=== PATIENT | male | born 1970 | race Caucasian/White ===

== ENCOUNTER 2021-05-31 13:03 | Inpatient (IN) | payer BC ==
[2021-05-31 14:01] LABS: CORONAVIRUS COVID-19 NAA NEGATIVE (NEGATIVE); RESPIRATORY SYNCYTIAL VIR NAA NEGATIVE (NEGATIVE)
[2021-05-31] MEDS ORDERED: Sodium Chloride 0.9% 1,000 ML IV ONE (14:14)
[2021-05-31] MEDS ORDERED: Ondansetron 4 MG/2 ML SDV IV ONE (14:14)
[2021-05-31] MEDS ORDERED: Sodium Chloride 0.9% 10 ML Syringe FLUSH PRN (14:14)
[2021-05-31 14:38] LABS: PTT,PARTIAL THROMBOPLSTIN TIME 25.9 SEC (22.0-34.0)
[2021-05-31 14:40] LABS: ANION GAP 14.6 mEq/L (7-13)
[2021-05-31] MEDS ORDERED: Aspirin 81 MG Tab.Chew PO ONE (15:06)
[2021-05-31] MEDS ORDERED: Heparin Sodium 5,000 Units/ML Vial IVPUSH ONE (15:06)
[2021-05-31] MEDS ORDERED: VANCOmycin 1.75 GM/350 ML 1.75 GM in Premix Bag 1 BAG IV ONE (15:15)
[2021-05-31] MEDS: Heparin Sodium/0.45% NaCl 25,000 UNITS/500 ML BAG IV SCH (15:17)
[2021-05-31] MEDS ORDERED: Ondansetron 4 MG/2 ML SDV IVPUSH PRN (19:02)
[2021-05-31] MEDS ORDERED: oxyCODONE 5 MG Tab PO PRN (19:02)
[2021-05-31] MEDS ORDERED: Docusate Sodium 100 MG Cap PO PRN (19:02)
[2021-05-31] MEDS ORDERED: Clopidogrel 75 MG Tab PO STA (19:09)
[2021-05-31] MEDS ORDERED: atorvaSTATin 20 MG Tab PO STA (19:15)
[2021-05-31] MEDS ORDERED: Furosemide 20 MG/2 ML VIAL IVPUSH ONE (19:53)
[2021-05-31] MEDS ORDERED: Morphine 2 MG/ML SYRINGE ONE (20:40)
[2021-05-31] MEDS: Morphine 2 MG/ML SYRINGE IVPUSH PRN (20:41)
[2021-05-31] MEDS ORDERED: Nitroglycerin 0.4 MG Tab.SL SL PRN (20:54)
[2021-05-31] MEDS ORDERED: Nitroglycerin 0.4 MG Tab.SL ONE (20:57)
[2021-05-31] MEDS ORDERED: Pantoprazole 40 MG Tab.CR PO SCH (21:00)
[2021-05-31] MEDS ORDERED: Morphine 2 MG/ML SYRINGE IVPUSH ONE (21:00)
[2021-05-31] MEDS ORDERED: Nitroglycerin 2% Oint 1 GM UD Packet ONE (21:13)
[2021-05-31] MEDS ORDERED: Nitroglycerin 2% Oint 1 GM UD Packet TOP ONE (21:19)
[2021-05-31] MEDS ORDERED: HYDROmorphone 1 MG/ML Syringe ONE (21:33)
[2021-05-31] MEDS ORDERED: HYDROmorphone 1 MG/ML Syringe IVPUSH ONE (21:33)
[2021-06-01] MEDS: Acetaminophen 325 MG Tab PO PRN ×2 (01:36→09:44)
[2021-06-01] MEDS ORDERED: Heparin Sodium 5,000 Units/ML Vial ONE (02:05)
[2021-06-01] MEDS ORDERED: Heparin Sodium 5,000 Units/ML Vial IVPUSH ONE (02:10)
[2021-06-01] MEDS: Morphine 2 MG/ML SYRINGE IVPUSH PRN ×3 (02:21→10:14)
[2021-06-01] MEDS ORDERED: Piperacillin/Tazobactam 2.25 GM in Sodium Chloride 0.9% 50 ML IV SCH (07:14)
[2021-06-01] MEDS ORDERED: Carvedilol 3.125 MG Tab PO SCH (08:00)
[2021-06-01] MEDS ORDERED: Aspirin 325 MG Tab PO SCH (08:00)
[2021-06-01] MEDS ORDERED: atorvaSTATin 20 MG Tab PO ONE (09:00)
[2021-06-01] MEDS ORDERED: Clopidogrel 75 MG Tab PO SCH (09:00)
[2021-06-01] MEDS ORDERED: 50% Dextrose in Water 50 ML Syringe IVPUSH PRN (09:04)
[2021-06-01] MEDS ORDERED: Glucagon,Human Recombinant 1 MG Vial IM PRN (09:04)
[2021-06-01 09:06] LABS: HEMOGLOBIN A1C 13.2 % (<5.7)
[2021-06-01 09:23] LABS: ANION GAP 12.8 mEq/L (7-13)
[2021-06-01] MEDS ORDERED: Insulin Lispro 100 Units/ML 3 ML Vial SUBCUT SCH (09:45)
[2021-06-01] MEDS ORDERED: Furosemide 40 MG/4 ML VIAL IVPUSH ONE (10:11)
[2021-06-01] MEDS: Heparin Sodium/0.45% NaCl 25,000 UNITS/500 ML BAG IV SCH (10:34)
== END 2021-06-01 11:15 | DRG 190 ==
LOC: DL.ED 13:03 → DL.MS 17:52
PROVIDERS: ADMIT Internal Medicine; ATTEND Internal Medicine
DX: I21.4 Non-ST elevation (NSTEMI) myocardial infarction (principal); N17.9 Acute kidney failure, unspecified; N18.9 Chronic kidney disease, unspecified; E66.9 Obesity, unspecified; E61.1 Iron deficiency; E11.22 Type 2 diabetes mellitus with diabetic chronic kidney disease; D63.1 Anemia in chronic kidney disease; M25.512 Pain in left shoulder; Z68.44 Body mass index [BMI] 60.0-69.9, adult
CPT/HCPCS: 0241U; 36415; 71045; 80048; 80053; 82150; 82272; 82947; 83036; 83540; 83550; 83605; 83735; 83880; 84484; 85025; 85027; 85379; 85610; 85730; 86140; 86850; 86900; 86901; 86920; 86922; 87040; 87081; 87430; 93005; 93010; 93971; 96365; 96366; 96368; 96375; 99285; 99285-25; A9270-GY; J1170; J1644; J1815-GY; J1940; J2270; J2405; J2543; J3370; J7030

== ENCOUNTER 2021-06-01 23:23 | Inpatient (IN) | payer BC ==
[2021-06-01] MEDS ORDERED: Sodium Chloride 0.9% 10 ML Syringe FLUSH PRN (23:45)
[2021-06-01] MEDS ORDERED: Acetaminophen 325 MG Tab PO PRN (23:45)
[2021-06-01] MEDS ORDERED: 50% Dextrose in Water 50 ML Syringe IVPUSH PRN (23:57)
[2021-06-02] MEDS ORDERED: 50% Dextrose in Water 50 ML Syringe IVPUSH PRN (00:06)
[2021-06-02] MEDS ORDERED: Glucagon,Human Recombinant 1 MG Vial IM PRN (00:06)
[2021-06-02] MEDS: oxyCODONE 5 MG Tab PO PRN ×4 (00:35→19:35)
[2021-06-02 01:16] LABS: ANION GAP 14.7 mEq/L (7-13)
[2021-06-02] MEDS: Heparin Sodium 5,000 Units/ML Vial SUBCUT SCH ×3 (05:53→21:56)
[2021-06-02] MEDS: Pantoprazole 40 MG Tab.CR PO SCH ×2 (05:53→15:59)
[2021-06-02] MEDS: Docusate Sodium 100 MG Cap PO PRN ×2 (05:53→19:35)
[2021-06-02] MEDS ORDERED: Pantoprazole 40 MG Tab.CR PO SCH (06:00)
[2021-06-02] MEDS ORDERED: Furosemide 40 MG/4 ML VIAL IVPUSH SCH (08:00)
[2021-06-02] MEDS: Sodium Chloride 0.9% 10 ML Syringe FLUSH SCH ×2 (09:54→22:14)
[2021-06-02] MEDS: Insulin Lispro 100 Units/ML 3 ML Vial SUBCUT SCH ×4 (09:54→22:14)
[2021-06-02] MEDS: Insulin Glarg,Human.Rec.Analog 100 Unit/ML SUBCUT SCH (09:57)
[2021-06-02] MEDS: Ondansetron 4 MG/2 ML SDV IVPUSH PRN ×2 (10:12→19:34)
[2021-06-02] MEDS: Metoprolol Tartrate 25 MG Tab PO SCH ×2 (10:47→21:57)
[2021-06-02] MEDS: Iron Polysaccharides Complex 150 MG Cap PO SCH (10:48)
[2021-06-02] MEDS: Clopidogrel 75 MG Tab PO SCH (10:48)
[2021-06-02] MEDS: Aspirin 81 MG Tab.EC PO SCH (10:48)
[2021-06-02 10:52] LABS: ANION GAP 14.7 mEq/L (7-13)
[2021-06-02] MEDS: Sodium Chloride 0.9% 1,000 ML IV SCH (15:59)
[2021-06-02] MEDS: atorvaSTATin 20 MG Tab PO SCH (21:56)
[2021-06-03] MEDS: Sodium Chloride 0.9% 1,000 ML IV SCH ×2 (01:50→14:25)
[2021-06-03 05:51] LABS: ANION GAP 14.4 mEq/L (7-13)
[2021-06-03] MEDS: Heparin Sodium 5,000 Units/ML Vial SUBCUT SCH ×3 (05:57→21:34)
[2021-06-03] MEDS: Pantoprazole 40 MG Tab.CR PO SCH ×2 (05:57→16:56)
[2021-06-03] MEDS: Metoprolol Tartrate 25 MG Tab PO SCH ×2 (08:07→21:33)
[2021-06-03] MEDS: Aspirin 81 MG Tab.EC PO SCH (08:08)
[2021-06-03] MEDS: Clopidogrel 75 MG Tab PO SCH (08:08)
[2021-06-03] MEDS: Iron Polysaccharides Complex 150 MG Cap PO SCH (08:08)
[2021-06-03] MEDS: Insulin Lispro 100 Units/ML 3 ML Vial SUBCUT SCH ×4 (08:09→21:34)
[2021-06-03] MEDS: Insulin Glarg,Human.Rec.Analog 100 Unit/ML SUBCUT SCH (08:15)
[2021-06-03] MEDS: Sodium Chloride 0.9% 10 ML Syringe FLUSH SCH ×2 (08:19→21:36)
[2021-06-03] MEDS ORDERED: Furosemide 40 MG/4 ML VIAL IVPUSH ONE (10:15)
[2021-06-03] MEDS: amLODIPine 5 MG Tab PO SCH (11:42)
[2021-06-03] MEDS: Multivitamin Tab PO SCH (11:42)
[2021-06-03] MEDS: cefTRIAXone 1 GM in Sodium Chloride 0.9% 50 ML IV SCH (11:44)
[2021-06-03] MEDS ORDERED: Zolpidem 5 MG Tab PO PRN (21:00)
[2021-06-03] MEDS: atorvaSTATin 20 MG Tab PO SCH (21:33)
[2021-06-04] MEDS: Sodium Chloride 0.9% 1,000 ML IV SCH ×3 (00:56→22:58)
[2021-06-04] MEDS: Pantoprazole 40 MG Tab.CR PO SCH ×2 (05:39→17:12)
[2021-06-04] MEDS: Heparin Sodium 5,000 Units/ML Vial SUBCUT SCH ×3 (05:39→21:49)
[2021-06-04 06:51] LABS: ANION GAP 14.8 mEq/L (7-13)
[2021-06-04] MEDS: oxyCODONE 5 MG Tab PO PRN (08:53)
[2021-06-04] MEDS: Docusate Sodium 100 MG Cap PO PRN (08:56)
[2021-06-04] MEDS: Multivitamin Tab PO SCH (08:57)
[2021-06-04] MEDS: Iron Polysaccharides Complex 150 MG Cap PO SCH (08:57)
[2021-06-04] MEDS: amLODIPine 5 MG Tab PO SCH (08:58)
[2021-06-04] MEDS: Clopidogrel 75 MG Tab PO SCH (08:58)
[2021-06-04] MEDS: Metoprolol Tartrate 25 MG Tab PO SCH ×2 (08:59→21:43)
[2021-06-04] MEDS: Aspirin 81 MG Tab.EC PO SCH (09:00)
[2021-06-04] MEDS: Insulin Lispro 100 Units/ML 3 ML Vial SUBCUT SCH ×4 (09:01→21:44)
[2021-06-04] MEDS: Insulin Glarg,Human.Rec.Analog 100 Unit/ML SUBCUT SCH (09:02)
[2021-06-04] MEDS: Sodium Chloride 0.9% 10 ML Syringe FLUSH SCH ×2 (09:04→21:45)
[2021-06-04] MEDS: Furosemide 40 MG/4 ML VIAL IVPUSH SCH ×2 (11:16→14:10)
[2021-06-04] MEDS: Lactulose Soln 10 GM/15 ML 30 ML UD Cup PO SCH ×2 (11:20→17:13)
[2021-06-04] MEDS: cefTRIAXone 1 GM in Sodium Chloride 0.9% 50 ML IV SCH (11:44)
[2021-06-04] MEDS: atorvaSTATin 20 MG Tab PO SCH (21:42)
[2021-06-05] MEDS ORDERED: Furosemide 40 MG/4 ML VIAL IVPUSH ONE (00:14)
[2021-06-05] MEDS ORDERED: LORazepam 0.5 MG Tab PO PRN (00:15)
[2021-06-05] MEDS ORDERED: Nitroglycerin 0.4 MG Tab.SL SL ONE (00:15)
[2021-06-05] MEDS: Heparin Sodium 5,000 Units/ML Vial SUBCUT SCH (06:02)
[2021-06-05] MEDS: Pantoprazole 40 MG Tab.CR PO SCH (06:02)
[2021-06-05 07:05] LABS: ANION GAP 16.2 mEq/L (7-13)
[2021-06-05] MEDS: Furosemide 40 MG/4 ML VIAL IVPUSH SCH (08:48)
[2021-06-05] MEDS: Sodium Chloride 0.9% 10 ML Syringe FLUSH SCH (09:15)
[2021-06-05] MEDS: Insulin Lispro 100 Units/ML 3 ML Vial SUBCUT SCH ×2 (09:52→13:54)
[2021-06-05] MEDS: Insulin Glarg,Human.Rec.Analog 100 Unit/ML SUBCUT SCH (09:55)
[2021-06-05] MEDS: amLODIPine 5 MG Tab PO SCH (09:59)
[2021-06-05] MEDS: Clopidogrel 75 MG Tab PO SCH (10:00)
[2021-06-05] MEDS: Iron Polysaccharides Complex 150 MG Cap PO SCH (10:01)
[2021-06-05] MEDS: Metoprolol Tartrate 25 MG Tab PO SCH (10:01)
[2021-06-05] MEDS: Aspirin 81 MG Tab.EC PO SCH (10:02)
[2021-06-05] MEDS: Multivitamin Tab PO SCH (10:02)
[2021-06-05] MEDS: cefTRIAXone 1 GM in Sodium Chloride 0.9% 50 ML IV SCH (13:54)
== END 2021-06-05 11:50 | DRG 469 ==
LOC: DL.MS 23:45
PROVIDERS: ADMIT Internal Medicine; ATTEND Internal Medicine
PROC: 30233N1 Transfusion of Nonautologous Red Blood Cells into Peripheral Vein, Percutaneous Approach (ICD-10-PCS; principal; 2021-06-01)
DX: N17.9 Acute kidney failure, unspecified (principal); I21.4 Non-ST elevation (NSTEMI) myocardial infarction; I25.10 Atherosclerotic heart disease of native coronary artery without angina pectoris; I50.9 Heart failure, unspecified; N18.30 Chronic kidney disease, stage 3 unspecified; E87.5 Hyperkalemia; E11.22 Type 2 diabetes mellitus with diabetic chronic kidney disease; D50.9 Iron deficiency anemia, unspecified; F41.9 Anxiety disorder, unspecified; E87.1 Hypo-osmolality and hyponatremia; E11.65 Type 2 diabetes mellitus with hyperglycemia; E66.01 Morbid (severe) obesity due to excess calories; Z79.82 Long term (current) use of aspirin; Z79.4 Long term (current) use of insulin; Z79.899 Other long term (current) drug therapy; Z79.02 Long term (current) use of antithrombotics/antiplatelets; Z95.5 Presence of coronary angioplasty implant and graft; Z68.43 Body mass index [BMI] 50.0-59.9, adult
CPT/HCPCS: 36415; 36430; 74176; 80048; 81001; 82947; 83880; 84100; 85025; 86850; 86900; 86901; 86920; 86922; 94060; 97140-GO; 97165-GO; A9270-GY; J0696; J1644; J1815-GY; J1940; J2405; J7030; P9016

== ENCOUNTER 2021-07-28 17:28 | Inpatient (IN) | payer BC ==
[2021-07-28] MEDS: Sodium Chloride 0.9% 10 ML Syringe FLUSH PRN ×2 (18:19→23:16)
[2021-07-28] MEDS ORDERED: Sodium Chloride 0.9% 1,000 ML IV ONE (18:40)
[2021-07-28] MEDS ORDERED: cefTRIAXone 1 GM in Sodium Chloride 0.9% 50 ML IV ONE (18:40)
[2021-07-28] MEDS ORDERED: Bumetanide 1 MG/4 ML MDV IVPUSH ONE (19:31)
[2021-07-28 19:43] LABS: CORONAVIRUS COVID-19 NAA NEGATIVE (NEGATIVE); RESPIRATORY SYNCYTIAL VIR NAA NEGATIVE (NEGATIVE)
[2021-07-28] MEDS ORDERED: Magnesium Sulfate/Water 2 GM in Premix Bag 1 BAG IV ONE (19:50)
[2021-07-28] MEDS ORDERED: Glucagon,Human Recombinant 1 MG Vial IM PRN ×2 (21:54→22:16)
[2021-07-28] MEDS ORDERED: 50% Dextrose in Water 50 ML Syringe IVPUSH PRN ×2 (21:54→22:16)
[2021-07-28] MEDS: Piperacillin/Tazobactam 2.25 GM in Sodium Chloride 0.9% 50 ML IV SCH (23:16)
[2021-07-29] MEDS: Piperacillin/Tazobactam 2.25 GM in Sodium Chloride 0.9% 50 ML IV SCH ×4 (05:41→21:30)
[2021-07-29] MEDS: Glimepiride 2 MG Tab PO SCH (08:01)
[2021-07-29] MEDS: Insulin Lispro 100 Units/ML 3 ML Vial SUBCUT SCH ×4 (08:01→23:09)
[2021-07-29] MEDS: Multivitamin Tab PO SCH (08:02)
[2021-07-29] MEDS: Bumetanide 1 MG Tab PO SCH (08:02)
[2021-07-29] MEDS: Labetalol 100 MG Tab PO SCH (08:03)
[2021-07-29] MEDS: Clopidogrel 75 MG Tab PO SCH (08:03)
[2021-07-29] MEDS: hydrALAZINE 25 MG Tab PO SCH ×2 (08:05→14:59)
[2021-07-29 08:06] LABS: ANION GAP 19.3 mEq/L (7-13)
[2021-07-29] MEDS: Aspirin 81 MG Tab.EC PO SCH (08:08)
[2021-07-29] MEDS ORDERED: Insulin Glarg,Human.Rec.Analog 100 Unit/ML SUBCUT SCH (09:00)
[2021-07-29] MEDS ORDERED: Ondansetron 4 MG Tab.DIS PO PRN (10:41)
[2021-07-29] MEDS ORDERED: VANCOmycin 1.5 GM/300 ML 1.5 GM in Premix Bag 1 BAG IV SCH (14:00)
[2021-07-29] MEDS: Heparin Sodium 5,000 Units/ML Vial SUBCUT SCH ×2 (14:59→21:23)
[2021-07-29] MEDS: Pantoprazole 40 MG Tab.CR PO SCH (21:21)
[2021-07-29] MEDS: Sodium Chloride 0.9% 10 ML Syringe FLUSH PRN (21:30)
[2021-07-29] MEDS: Acetaminophen 325 MG Tab PO PRN (21:36)
[2021-07-29] MEDS: Calcium Carbonate 500 MG Tab.Chew PO SCH (21:38)
[2021-07-29] MEDS: Insulin Glarg,Human.Rec.Analog 100 Unit/ML SUBCUT SCH (22:14)
[2021-07-29] MEDS: atorvaSTATin 20 MG Tab PO SCH (23:07)
[2021-07-30] MEDS: Labetalol 100 MG Tab PO SCH ×3 (00:33→21:33)
[2021-07-30] MEDS: hydrALAZINE 25 MG Tab PO SCH ×4 (00:33→21:33)
[2021-07-30] MEDS: Sodium Chloride 0.9% 10 ML Syringe FLUSH PRN (04:29)
[2021-07-30] MEDS: Piperacillin/Tazobactam 2.25 GM in Sodium Chloride 0.9% 50 ML IV SCH ×4 (04:29→21:47)
[2021-07-30] MEDS: Heparin Sodium 5,000 Units/ML Vial SUBCUT SCH ×3 (06:36→21:32)
[2021-07-30 06:43] LABS: ANION GAP 21.4 mEq/L (7-13)
[2021-07-30] MEDS: Insulin Lispro 100 Units/ML 3 ML Vial SUBCUT SCH ×4 (08:55→21:32)
[2021-07-30] MEDS: Acetaminophen 325 MG Tab PO PRN (10:03)
[2021-07-30] MEDS: Multivitamin Tab PO SCH (12:06)
[2021-07-30] MEDS: Clopidogrel 75 MG Tab PO SCH (12:06)
[2021-07-30] MEDS: Bumetanide 1 MG Tab PO SCH (12:06)
[2021-07-30] MEDS: Glimepiride 2 MG Tab PO SCH (12:07)
[2021-07-30] MEDS: Aspirin 81 MG Tab.EC PO SCH (12:07)
[2021-07-30] MEDS: Calcium Carbonate 500 MG Tab.Chew PO SCH (21:32)
[2021-07-30] MEDS: atorvaSTATin 20 MG Tab PO SCH (21:33)
[2021-07-30] MEDS: Pantoprazole 40 MG Tab.CR PO SCH (21:33)
[2021-07-30] MEDS: Insulin Glarg,Human.Rec.Analog 100 Unit/ML SUBCUT SCH (21:36)
[2021-07-31] MEDS: Acetaminophen/HYDROcodone 325-5 MG Tab PO PRN ×2 (02:14→11:18)
[2021-07-31] MEDS: Heparin Sodium 5,000 Units/ML Vial SUBCUT SCH (05:42)
[2021-07-31] MEDS: Piperacillin/Tazobactam 2.25 GM in Sodium Chloride 0.9% 50 ML IV SCH ×2 (05:42→10:25)
[2021-07-31 07:13] LABS: ANION GAP 20.5 mEq/L (7-13)
[2021-07-31] MEDS: Insulin Lispro 100 Units/ML 3 ML Vial SUBCUT SCH ×2 (08:13→11:26)
[2021-07-31] MEDS: Multivitamin Tab PO SCH (08:31)
[2021-07-31] MEDS: Clopidogrel 75 MG Tab PO SCH (08:31)
[2021-07-31] MEDS: Aspirin 81 MG Tab.EC PO SCH (08:31)
[2021-07-31] MEDS: Glimepiride 2 MG Tab PO SCH (08:31)
[2021-07-31] MEDS: Bumetanide 1 MG Tab PO SCH (08:32)
[2021-07-31] MEDS: hydrALAZINE 25 MG Tab PO SCH (08:34)
[2021-07-31] MEDS: Labetalol 100 MG Tab PO SCH (08:35)
[2021-07-31] MEDS: Sodium Chloride 0.9% 10 ML Syringe FLUSH PRN (11:05)
== END 2021-07-31 12:20 | DRG 720 ==
LOC: DL.ED 17:28 → UNDOADMOB 20:38 → DL.MS 20:38 → INTOOBSV 20:38 → OBSVTOIN 20:38 → UNDODISIN 07-31 12:20
PROVIDERS: ADMIT Internal Medicine; ATTEND Internal Medicine
DX: A41.02 Sepsis due to Methicillin resistant Staphylococcus aureus (principal); N17.9 Acute kidney failure, unspecified; I25.10 Atherosclerotic heart disease of native coronary artery without angina pectoris; I25.5 Ischemic cardiomyopathy; E11.22 Type 2 diabetes mellitus with diabetic chronic kidney disease; I13.0 Hypertensive heart and chronic kidney disease with heart failure and stage 1 through stage 4 chronic kidney disease, or unspecified chronic kidney disease; N18.4 Chronic kidney disease, stage 4 (severe); I50.22 Chronic systolic (congestive) heart failure; Z20.822 Contact with and (suspected) exposure to COVID-19; Z68.41 Body mass index [BMI] 40.0-44.9, adult; E11.65 Type 2 diabetes mellitus with hyperglycemia; E83.42 Hypomagnesemia; E66.9 Obesity, unspecified; Z99.2 Dependence on renal dialysis; Z79.82 Long term (current) use of aspirin; Z79.899 Other long term (current) drug therapy; Z79.4 Long term (current) use of insulin; Z79.02 Long term (current) use of antithrombotics/antiplatelets; Z68.30 Body mass index [BMI] 30.0-30.9, adult; I25.2 Old myocardial infarction; Z28.82 Immunization not carried out because of caregiver refusal
CPT/HCPCS: 0241U; 36415; 71045; 80048; 81001; 82947; 83605; 83735; 83880; 84100; 84484; 85025; 87040; 87077; 87086; 87186; 93005; 93010; 96365; 96366; 96367; 96372; 96375; 96376; 99223; 99232; 99233; 99239; 99284; 99285-25; A9270-GY; G0378; J0696; J1644; J1815-GY; J2543; J3370; J3475; J3490; J7030

== ENCOUNTER 2022-05-16 17:34 | Inpatient (IN) | payer BC ==
[2022-05-16] MEDS ORDERED: Acetaminophen 500 MG Tab PO ONE (17:49)
[2022-05-16] MEDS ORDERED: Sodium Chloride 0.9% 1,000 ML IV ONE ×2 (17:50→19:37)
[2022-05-16] MEDS: Sodium Chloride 0.9% 10 ML Syringe FLUSH PRN ×2 (18:09→19:24)
[2022-05-16 18:27] LABS: ANION GAP 16.6 mEq/L (7-13)
[2022-05-16 18:35] LABS: CORONAVIRUS COVID-19 NAA NEGATIVE (NEGATIVE); RESPIRATORY SYNCYTIAL VIR NAA NEGATIVE (NEGATIVE)
[2022-05-16] MEDS ORDERED: Vancomycin 2 GM in Sodium Chloride 0.9% 500 ML IV ONE (18:42)
[2022-05-16] MEDS ORDERED: Piperacillin/Tazobactam 3.375 GM in Sodium Chloride 0.9% 100 ML IV ONE (18:44)
[2022-05-16] MEDS ORDERED: Furosemide 40 MG/4 ML VIAL IVPUSH ONE (19:36)
[2022-05-16] MEDS ORDERED: Polyethylene Glycol 3350 Powder 17 GM Packet PO PRN (22:10)
[2022-05-16] MEDS ORDERED: Acetaminophen/HYDROcodone 325-10 MG Tab PO PRN (22:10)
[2022-05-16] MEDS ORDERED: Albuterol/Ipratropium 3.0-0.5 MG/3 ML Neb Soln NEB PRN (22:10)
[2022-05-16] MEDS ORDERED: Magnesium Hydroxide 400 MG/5 ML Susp 30 ML Cup PO PRN (22:10)
[2022-05-16] MEDS ORDERED: Bisacodyl 5 MG Tab PO PRN (22:10)
[2022-05-16] MEDS ORDERED: hydrALAZINE 20 MG/ML SDV IVPUSH PRN (22:18)
[2022-05-16] MEDS ORDERED: Metoprolol Tartrate 5 MG/5 ML SDV IVPUSH PRN (22:18)
[2022-05-16] MEDS ORDERED: Heparin Sodium 5,000 Units/ML Vial IVPUSH ONE (22:19)
[2022-05-16] MEDS ORDERED: Magnesium Sulfate/Water 2 GM in Premix Bag 1 BAG IV ONE (22:21)
[2022-05-16] MEDS ORDERED: Bacitracin/Neomycin/Polymyxin B Oint 28.4 GM Tube TOP PRN (22:22)
[2022-05-16] MEDS ORDERED: Clindamycin Phosphate 900 MG in Sodium Chloride 0.9% 100 ML IV SCH (22:30)
[2022-05-16] MEDS: Acetaminophen 325 MG Tab PO PRN (22:59)
[2022-05-16] MEDS: Insulin Lispro 100 Units/ML 3 ML Vial SUBCUT SCH (23:38)
[2022-05-17] MEDS: Heparin Sodium/0.45% NaCl 25,000 UNITS/500 ML BAG IV SCH ×2 (00:10→20:14)
[2022-05-17] MEDS: Sodium Chloride 0.9% 10 ML Syringe FLUSH PRN ×2 (00:14→06:14)
[2022-05-17] MEDS: Piperacillin/Tazobactam 3.375 GM in Sodium Chloride 0.9% 100 ML IV SCH ×5 (00:27→23:55)
[2022-05-17] MEDS: Lactated Ringers 1,000 ML IV SCH ×2 (01:24→21:02)
[2022-05-17] MEDS: Insulin Lispro 100 Units/ML 3 ML Vial SUBCUT SCH ×4 (05:29→17:49)
[2022-05-17 06:48] LABS: ANION GAP 14.8 mEq/L (7-13); CHLORIDE,CL 103 mmol/L (98-107); SODIUM,NA 137 mmol/L (136-145)
[2022-05-17 06:53] LABS: ESTIMATED GFR 15 mL/min (>=60)
[2022-05-17] MEDS: Midodrine 2.5 MG Tab PO SCH ×3 (07:29→16:49)
[2022-05-17] MEDS ORDERED: Glimepiride 2 MG Tab PO SCH (08:00)
[2022-05-17] MEDS ORDERED: Heparin Sodium 5,000 Units/ML Vial IVPUSH ONE ×3 (08:15→23:35)
[2022-05-17] MEDS: Saccharomyces Boulardii (Probiotic) 250 MG Cap PO SCH ×2 (08:49→20:22)
[2022-05-17] MEDS: Aspirin 81 MG Tab.EC PO SCH (08:50)
[2022-05-17] MEDS: Clopidogrel 75 MG Tab PO SCH (08:50)
[2022-05-17] MEDS: hydrALAZINE 25 MG Tab PO SCH (08:50)
[2022-05-17] MEDS: Clindamycin in 0.9 % Sod Chlor 900 MG in Premix Bag 1 BAG IV SCH ×4 (14:32→22:18)
[2022-05-17] MEDS ORDERED: Bumetanide 1 MG/4 ML MDV IVPUSH ONE (20:28)
[2022-05-17] MEDS ORDERED: Sodium Bicarbonate 8.4% 50 MEQ/50 ML Syringe IVPUSH ONE (20:39)
[2022-05-17] MEDS: 50% Dextrose in Water 50 ML Syringe IVPUSH PRN (20:49)
[2022-05-18] MEDS: 50% Dextrose in Water 50 ML Syringe IVPUSH PRN ×4 (00:08→16:29)
[2022-05-18] MEDS: Insulin Lispro 100 Units/ML 3 ML Vial SUBCUT SCH ×11 (00:17→22:37)
[2022-05-18] MEDS: Sodium Bicarbonate 650 MG Tab PO SCH ×4 (05:37→20:42)
[2022-05-18] MEDS: Piperacillin/Tazobactam 3.375 GM in Sodium Chloride 0.9% 100 ML IV SCH ×2 (05:39→12:11)
[2022-05-18] MEDS ORDERED: HYDROmorphone 0.5 MG/0.5 ML Syringe IVPUSH ONE (06:14)
[2022-05-18 06:31] LABS: ANION GAP 15.4 mEq/L (7-13); CHLORIDE,CL 102 mmol/L (98-107); SODIUM,NA 137 mmol/L (136-145)
[2022-05-18 06:41] LABS: ESTIMATED GFR 12 mL/min (>=60)
[2022-05-18] MEDS: Clindamycin in 0.9 % Sod Chlor 900 MG in Premix Bag 1 BAG IV SCH ×6 (06:51→22:47)
[2022-05-18] MEDS: Midodrine 2.5 MG Tab PO SCH (07:20)
[2022-05-18] MEDS ORDERED: Heparin Sodium 5,000 Units/ML Vial IVPUSH ONE ×2 (07:36→16:23)
[2022-05-18] MEDS: Dextrose 5%-0.9% NaCl 1,000 ML IV SCH ×3 (07:41→22:26)
[2022-05-18] MEDS: Heparin Sodium/0.45% NaCl 25,000 UNITS/500 ML BAG IV SCH ×2 (07:54→19:19)
[2022-05-18] MEDS ORDERED: Midodrine 2.5 MG Tab PO PRN (08:36)
[2022-05-18] MEDS: HYDROmorphone 0.5 MG/0.5 ML Syringe IVPUSH PRN (08:45)
[2022-05-18] MEDS ORDERED: Mineral Oil/White Petrolatum Crm 113 GM Jar TOP PRN (09:04)
[2022-05-18] MEDS: Clopidogrel 75 MG Tab PO SCH (10:04)
[2022-05-18] MEDS: Saccharomyces Boulardii (Probiotic) 250 MG Cap PO SCH ×3 (10:05→20:42)
[2022-05-18] MEDS: Aspirin 81 MG Tab.EC PO SCH (10:05)
[2022-05-18] MEDS: hydrALAZINE 25 MG Tab PO SCH ×2 (10:05→13:33)
[2022-05-18] MEDS: Ondansetron 4 MG/2 ML SDV IVPUSH PRN ×2 (10:17→16:35)
[2022-05-18] MEDS: Glucagon,Human Recombinant 1 MG Vial IM PRN (10:47)
[2022-05-18] MEDS: Pantoprazole 40 MG Tab.CR PO SCH (16:29)
[2022-05-18] MEDS: Sodium Chloride 0.9% 10 ML Syringe FLUSH PRN ×4 (16:37→22:30)
[2022-05-18] MEDS: Piperacillin/Tazobactam 2.25 GM in Sodium Chloride 0.9% 50 ML IV SCH (17:51)
[2022-05-18] MEDS ORDERED: Piperacillin/Tazobactam 2.25 GM in Sodium Chloride 0.9% 50 ML IV SCH (18:00)
[2022-05-19] MEDS: Piperacillin/Tazobactam 2.25 GM in Sodium Chloride 0.9% 50 ML IV SCH ×5 (00:19→23:35)
[2022-05-19] MEDS: Insulin Lispro 100 Units/ML 3 ML Vial SUBCUT SCH ×6 (00:30→10:52)
[2022-05-19] MEDS: Glucagon,Human Recombinant 1 MG Vial IM PRN (00:48)
[2022-05-19] MEDS: Dextrose 5%-0.9% NaCl 1,000 ML IV SCH ×4 (04:31→22:29)
[2022-05-19] MEDS: Clindamycin in 0.9 % Sod Chlor 900 MG in Premix Bag 1 BAG IV SCH ×6 (05:19→21:47)
[2022-05-19] MEDS: Pantoprazole 40 MG Tab.CR PO SCH ×2 (05:24→16:49)
[2022-05-19 08:03] LABS: ANION GAP 17.9 mEq/L (7-13)
[2022-05-19] MEDS ORDERED: Ergocalciferol (Vitamin D2) 1.25 MG Cap PO SCH (09:00)
[2022-05-19] MEDS: Aspirin 81 MG Tab.EC PO SCH (09:55)
[2022-05-19] MEDS: Sodium Bicarbonate 650 MG Tab PO SCH ×2 (09:55→22:35)
[2022-05-19] MEDS: Saccharomyces Boulardii (Probiotic) 250 MG Cap PO SCH ×2 (09:56→22:36)
[2022-05-19] MEDS: hydrALAZINE 25 MG Tab PO SCH (09:56)
[2022-05-19] MEDS: Clopidogrel 75 MG Tab PO SCH (09:56)
[2022-05-19] MEDS: Heparin Sodium 5,000 Units/ML Vial SUBCUT SCH ×2 (10:01→21:53)
[2022-05-19] MEDS: Ondansetron 4 MG/2 ML SDV IVPUSH PRN (10:07)
[2022-05-19] MEDS ORDERED: Loperamide 2 MG Cap PO ONE (18:30)
[2022-05-19] MEDS ORDERED: GI Cocktail Oral Solution 30 ML PO PRN (18:32)
[2022-05-19] MEDS ORDERED: traZODone 50 MG Tab PO ONE (18:33)
[2022-05-19] MEDS: Sodium Chloride 0.9% 10 ML Syringe FLUSH PRN (21:51)
[2022-05-19] MEDS ORDERED: Loperamide 2 MG Cap PO PRN (22:30)
[2022-05-20] MEDS: Melatonin 3 MG Tab PO PRN ×2 (02:09→20:52)
[2022-05-20] MEDS: guaiFENesin/Dextromethorphan 100-10 MG/5 ML Soln 5 ML Cup PO PRN ×3 (02:15→18:25)
[2022-05-20] MEDS: Saccharomyces Boulardii (Probiotic) 250 MG Cap PO SCH ×4 (04:00→20:50)
[2022-05-20] MEDS: Dextrose 5%-0.9% NaCl 1,000 ML IV SCH ×3 (04:07→20:49)
[2022-05-20] MEDS: Piperacillin/Tazobactam 2.25 GM in Sodium Chloride 0.9% 50 ML IV SCH ×3 (05:59→17:13)
[2022-05-20] MEDS: Pantoprazole 40 MG Tab.CR PO SCH ×2 (06:03→16:18)
[2022-05-20] MEDS: Clindamycin in 0.9 % Sod Chlor 900 MG in Premix Bag 1 BAG IV SCH ×6 (06:40→21:55)
[2022-05-20] MEDS ORDERED: Bumetanide 1 MG/4 ML MDV IVPUSH ONE (07:30)
[2022-05-20] MEDS: Insulin Lispro 100 Units/ML 3 ML Vial SUBCUT SCH ×3 (08:04→17:03)
[2022-05-20 08:09] LABS: ANION GAP 18.7 mEq/L (7-13)
[2022-05-20] MEDS: Clopidogrel 75 MG Tab PO SCH (08:47)
[2022-05-20] MEDS: Aspirin 81 MG Tab.EC PO SCH (08:47)
[2022-05-20] MEDS: Sodium Bicarbonate 650 MG Tab PO SCH ×2 (08:51→20:51)
[2022-05-20] MEDS: Heparin Sodium 5,000 Units/ML Vial SUBCUT SCH ×2 (08:51→20:50)
[2022-05-20] MEDS: hydrALAZINE 25 MG Tab PO SCH (08:51)
[2022-05-20] MEDS: Acetaminophen 325 MG Tab PO PRN (20:52)
[2022-05-20] MEDS: HYDROmorphone 0.5 MG/0.5 ML Syringe IVPUSH PRN (23:10)
[2022-05-21] MEDS: guaiFENesin/Dextromethorphan 100-10 MG/5 ML Soln 5 ML Cup PO PRN ×4 (00:15→21:07)
[2022-05-21] MEDS: Piperacillin/Tazobactam 2.25 GM in Sodium Chloride 0.9% 50 ML IV SCH ×5 (00:15→23:53)
[2022-05-21] MEDS: HYDROmorphone 0.5 MG/0.5 ML Syringe IVPUSH PRN ×5 (02:33→23:46)
[2022-05-21] MEDS: Clindamycin in 0.9 % Sod Chlor 900 MG in Premix Bag 1 BAG IV SCH ×6 (06:07→22:54)
[2022-05-21] MEDS: Sodium Chloride 0.9% 10 ML Syringe FLUSH PRN ×3 (07:23→23:45)
[2022-05-21] MEDS: Pantoprazole 40 MG Tab.CR PO SCH ×2 (07:24→15:12)
[2022-05-21] MEDS: Saccharomyces Boulardii (Probiotic) 250 MG Cap PO SCH ×2 (07:24→15:08)
[2022-05-21] MEDS: Insulin Lispro 100 Units/ML 3 ML Vial SUBCUT SCH ×3 (07:45→17:47)
[2022-05-21] MEDS: Aspirin 81 MG Tab.EC PO SCH (08:50)
[2022-05-21] MEDS: Heparin Sodium 5,000 Units/ML Vial SUBCUT SCH ×2 (08:50→22:45)
[2022-05-21] MEDS: Sodium Bicarbonate 650 MG Tab PO SCH (08:50)
[2022-05-21] MEDS: Clopidogrel 75 MG Tab PO SCH (08:50)
[2022-05-21] MEDS: hydrALAZINE 25 MG Tab PO SCH (08:50)
[2022-05-21 10:21] LABS: ANION GAP 17.8 mEq/L (7-13)
[2022-05-21] MEDS ORDERED: Metolazone 2.5 MG Tab PO ONE (10:39)
[2022-05-21] MEDS: Albumin Human 25 GM in Premix Bag 1 BAG IV SCH ×4 (12:51→20:03)
[2022-05-21] MEDS ORDERED: Benzocaine/Cetylpyridinium/Menthol Lozenge MUCMEM PRN (16:54)
[2022-05-21] MEDS ORDERED: Simethicone 80 MG Tab.Chew PO ONE (17:43)
[2022-05-21] MEDS ORDERED: Simethicone 80 MG Tab.Chew PO PRN (17:43)
[2022-05-21 20:37] LABS: ANION GAP 22.3 mEq/L (7-13)
[2022-05-21] MEDS ORDERED: Sodium Bicarbonate 8.4% 50 MEQ/50 ML Syringe IVPUSH ONE (20:57)
[2022-05-22] MEDS: Sodium Bicarbonate 650 MG Tab PO SCH ×2 (00:34→08:52)
[2022-05-22] MEDS: Saccharomyces Boulardii (Probiotic) 250 MG Cap PO SCH ×2 (00:36→08:52)
[2022-05-22] MEDS: HYDROmorphone 0.5 MG/0.5 ML Syringe IVPUSH PRN ×2 (04:08→09:19)
[2022-05-22] MEDS: Sodium Chloride 0.9% 10 ML Syringe FLUSH PRN ×3 (04:08→09:19)
[2022-05-22] MEDS: Ondansetron 4 MG/2 ML SDV IVPUSH PRN (04:19)
[2022-05-22] MEDS: Piperacillin/Tazobactam 2.25 GM in Sodium Chloride 0.9% 50 ML IV SCH (05:44)
[2022-05-22 05:59] LABS: ANION GAP 17.4 mEq/L (7-13)
[2022-05-22] MEDS: Clindamycin in 0.9 % Sod Chlor 900 MG in Premix Bag 1 BAG IV SCH ×2 (06:27)
[2022-05-22] MEDS: Clopidogrel 75 MG Tab PO SCH (08:52)
[2022-05-22] MEDS: Pantoprazole 40 MG Tab.CR PO SCH (08:52)
[2022-05-22] MEDS: hydrALAZINE 25 MG Tab PO SCH (08:53)
[2022-05-22] MEDS: Insulin Lispro 100 Units/ML 3 ML Vial SUBCUT SCH (08:54)
[2022-05-22] MEDS: Aspirin 81 MG Tab.EC PO SCH (08:54)
[2022-05-22] MEDS: Heparin Sodium 5,000 Units/ML Vial SUBCUT SCH (08:56)
[2022-05-22] MEDS: guaiFENesin/Dextromethorphan 100-10 MG/5 ML Soln 5 ML Cup PO PRN (08:57)
== END 2022-05-22 10:20 | DRG 720 ==
LOC: DL.ED 17:34 → DL.MS 20:42 → DL.ED 21:02
PROVIDERS: ADMIT Internal Medicine; ATTEND Internal Medicine
DX: A41.02 Sepsis due to Methicillin resistant Staphylococcus aureus (principal); A40.9 Streptococcal sepsis, unspecified; L03.115 Cellulitis of right lower limb; L03.116 Cellulitis of left lower limb; I50.31 Acute diastolic (congestive) heart failure; N17.0 Acute kidney failure with tubular necrosis; N18.4 Chronic kidney disease, stage 4 (severe); E88.09 Other disorders of plasma-protein metabolism, not elsewhere classified; I31.39 Other pericardial effusion (noninflammatory); E66.01 Morbid (severe) obesity due to excess calories; R16.2 Hepatomegaly with splenomegaly, not elsewhere classified; K76.0 Fatty (change of) liver, not elsewhere classified; R59.0 Localized enlarged lymph nodes; E11.65 Type 2 diabetes mellitus with hyperglycemia; E87.20 Acidosis, unspecified; Q79.61 Classical Ehlers-Danlos syndrome; E83.51 Hypocalcemia; I21.4 Non-ST elevation (NSTEMI) myocardial infarction; E78.5 Hyperlipidemia, unspecified; I13.0 Hypertensive heart and chronic kidney disease with heart failure and stage 1 through stage 4 chronic kidney disease, or unspecified chronic kidney disease; E11.22 Type 2 diabetes mellitus with diabetic chronic kidney disease; E78.00 Pure hypercholesterolemia, unspecified; N30.01 Acute cystitis with hematuria; I25.10 Atherosclerotic heart disease of native coronary artery without angina pectoris; Z68.43 Body mass index [BMI] 50.0-59.9, adult; Z95.5 Presence of coronary angioplasty implant and graft; Z79.82 Long term (current) use of aspirin; Z79.899 Other long term (current) drug therapy
CPT/HCPCS: 0241U; 36415; 51702; 71045; 71250; 74176; 76770; 80048; 80053; 80061; 81001; 82150; 82306; 82533; 82947; 83605; 83690; 83735; 83880; 84100; 84145; 84439; 84443; 84484; 85025; 85730; 86140; 87040; 87070; 87077; 87081; 87186; 87205; 87493; 87641; 93005; 93010; 93970; 96361; 96365; 96366; 96368; 96375; 97161-GP; 97165-GO; 99285; 99285-25; A9270-GY; J1170; J1610; J1644; J1815-GY; J1940; J2405; J2543; J3370; J3475; J3490; J7030; J7040; J7042; J7050; J7120; P9047